=== PATIENT | male | born 1930 | race Caucasian/White ===

== ENCOUNTER → 2016-08-24 | Outpatient (CLI) | payer OTHER, MEDICARE ==
[2010-07-17 17:11] VITALS: BP 102/55
== END ==
LOC: LAB 12:40
PROVIDERS: ATTEND Urology
DX: R97.21 Rising PSA following treatment for malignant neoplasm of prostate (principal)
CPT/HCPCS: 36415; 84153

== ENCOUNTER → 2016-09-08 | Outpatient (CLI) | payer OTHER, MEDICARE ==
[2010-07-17 17:11] VITALS: BP 102/55
[2016-09-08 10:27] LABS: BUN/CREATININE RATIO 23.07 (6-20); CHOL/HDL RATIO 4.7 RATIO (0-4.0); LDL CHOLESTEROL,CALCULATED 96.4 mg/dL; SERUM ALBUMIN 4.2 g/dL (3.5-4.8)
--- NOTE | 2016-09-21 11:34 | EKG ---
[address] [address] Measurements Intervals [place] Rate: 52 P: 37 MO: 234 QRS: 89 QRSD: 118 T: 49 QT: 463 QTc: 443 Interpretive Statements SINUS BRADYCARDIA WITH SINUS ARRHYTHMIA WITH FIRST DEGREE AV BLOCK INCOMPLETE RIGHT BUNDLE BRANCH BLOCK Electronically Signed On 09-11-16 16:21:39 MDT by [employer] No previous ECG available for comparison [email or web address]
== END ==
LOC: LAB 09:51
PROVIDERS: ATTEND Internal Medicine Cardiovascular Disease
DX: I25.10 Atherosclerotic heart disease of native coronary artery without angina pectoris (principal); E78.00 Pure hypercholesterolemia, unspecified; I10 Essential (primary) hypertension; I35.9 Nonrheumatic aortic valve disorder, unspecified; I44.0 Atrioventricular block, first degree; I45.10 Unspecified right bundle-branch block; I34.0 Nonrheumatic mitral (valve) insufficiency; Z95.1 Presence of aortocoronary bypass graft
CPT/HCPCS: 36415; 80053; 80061; 93005; 93010; 93306

== ENCOUNTER → 2016-10-13 | Outpatient (CLI) | payer OTHER, MEDICARE ==
[2010-07-17 17:11] VITALS: BP 102/55
== END ==
LOC: LAB 10:28
PROVIDERS: ATTEND Urology
DX: C61 Malignant neoplasm of prostate (principal); R97.21 Rising PSA following treatment for malignant neoplasm of prostate
CPT/HCPCS: 36415; 84153